=== PATIENT | female | born 1940 | race African-American/Black ===

== ENCOUNTER 2018-09-08 16:57 | Inpatient (IN) | payer MEDICAID ==
[~2018-09-08] VITALS: Ht 152.4 cm; Wt 83.2 kg
[2018-09-08] MEDS ORDERED: WARF6TAB6 PO (17:19)
[2018-09-08] MEDS ORDERED: GABA-531 PO (17:19)
[2018-09-08] MEDS ORDERED: OMEP20CA10 PO (17:19)
[2018-09-08] MEDS ORDERED: METO-539 PO (17:19)
[2018-09-08] MEDS ORDERED: MULT-1116 PO (17:19)
[2018-09-08] MEDS ORDERED: CALC-3 PO (17:19)
[2018-09-08] MEDS ORDERED: FURO20TA4 PO (17:19)
[2018-09-08] MEDS ORDERED: LEVO88TA7 PO (17:19)
[2018-09-08] MEDS ORDERED: ONDANSETRON HCL 4MG/2ML INJ IV STA (20:46)
[2018-09-08] MEDS ORDERED: MORPHINE SULFATE 4 MG/ML CPJ (NOT FOR IM USE) IV STA (20:46)
[2018-09-08 21:46] LABS: BASOPHILS % 0.3 % (0.0-2.0); EOSINOPHILS % 1.6 % (0.0-5.0); HEMOGLOBIN. 14.5 g/dL (12.0-16.0); LYMPHOCYTES % 7.1 % (20.0-50.0); MEAN CORPUSCULAR VOLUME 95.4 fL (81.0-99.0); MEAN PLATELET VOLUME 9.8 fl (7.4-10.4); MONOCYTES % 4.6 % (2.0-8.0); NEUTROPHILS % 86.4 % (40.0-76.0); PLATELET 102 x1000/uL (130-400); RED CELL DISTRIBUTION WIDTH 12.9 % (11.6-14.6)
[2018-09-08 21:52] LABS: CHLORIDE 109 mEq/L (98-107)
[2018-09-08 21:53] LABS: INR 1.8; PROTHROMBIN TIME 18.1 sec (9.1-11.1)
[2018-09-08] MEDS ORDERED: AZITHROMYCIN 500 MG in DEXT 5% WATER 250 ML IV SCH (23:00)
[2018-09-08] MEDS ORDERED: CEFTRIAXONE 1 G PREMIX 50 ML IV ONE (23:00)
[2018-09-09] MEDS ORDERED: GUAIFENESIN 200MG/10ML SUGAR FREE UDC PO PRN
[2018-09-09] MEDS ORDERED: MAGNESIUM/ALUMINUM HYDROXIDE/SIMETHICONE 30ML UDC PO PRN
[2018-09-09] MEDS ORDERED: NA PHOS,M-B/NA PHOS,DI-BA ENEMA 118ML PR PRN
[2018-09-09] MEDS ORDERED: IPRATROPIUM/ALBUTEROL 0.5-3(2.5)MG/3ML NEB INH PRN
[2018-09-09] MEDS ORDERED: ENOXAPARIN 40MG/0.4ML SYR SUBCUT SCH
[2018-09-09] MEDS ORDERED: CLONIDINE 0.1MG TABLET PO PRN
[2018-09-09] MEDS ORDERED: CEFTRIAXONE 1 G PREMIX 50 ML IV SCH
[2018-09-09] MEDS ORDERED: DOCUSATE SODIUM 100MG CAPSULE PO PRN
[2018-09-09] MEDS ORDERED: ONDANSETRON HCL 4MG/2ML INJ IV PRN
[2018-09-09] MEDS ORDERED: HYDROCODONE/ACETAMINOPHEN 5/325MG TABLET PO PRN
[2018-09-09] MEDS ORDERED: LORAZEPAM 2MG/ML CPJ IV PRN
[2018-09-09] MEDS ORDERED: DIPHENHYDRAMINE 50MG/ML VIAL IV PRN
[2018-09-09] MEDS ORDERED: ACETAMINOPHEN 325MG TABLET PO PRN
[2018-09-09 05:14] LABS: BASOPHILS % 0.2 % (0.0-2.0); EOSINOPHILS % 2.4 % (0.0-5.0); HEMATOCRIT. 39.6 % (36.0-48.0); HEMOGLOBIN. 13.5 g/dL (12.0-16.0); LYMPHOCYTES % 16.3 % (20.0-50.0); MEAN CORPUSCULAR HEMOGLOBIN 32.5 pg (28.0-32.0); MEAN CORPUSCULAR VOLUME 95.2 fL (81.0-99.0); MEAN PLATELET VOLUME 9.7 fl (7.4-10.4); MONOCYTES % 8.5 % (2.0-8.0); NEUTROPHILS % 72.6 % (40.0-76.0); PLATELET 100 x1000/uL (130-400); RED BLOOD CELL COUNT 4.16 mill/uL (4.2-5.4); RED CELL DISTRIBUTION WIDTH 12.7 % (11.6-14.6)
[2018-09-09 05:15] LABS: CHLORIDE 108 mEq/L (98-107)
[2018-09-09 05:23] LABS: LDL CHOLESTEROL 98 mg/dL (5-100)
[2018-09-09 05:25] LABS: HDL CHOLESTEROL 56 mg/dL (40-59); T4 FREE 1.04 ng/dL (0.76-1.46)
[2018-09-09 09:48] VITALS: BP 133/66
[2018-09-09 09:56] VITALS: BP 133/66
[2018-09-09] MEDS ORDERED: HYDROMORPHONE HCL/PF 2MG/ML CPJ IV PRN (10:38)
[2018-09-09] MEDS ORDERED: *CEFTRIAXONE XX SCH (11:00)
[2018-09-09 12:00] VITALS: BP 135/74
[2018-09-09] MEDS: ASPIRIN 81MG EC TABLET PO SCH (13:58)
[2018-09-09] MEDS ORDERED: ACET-2853 PO (14:25)
[2018-09-09] MEDS ORDERED: WARF10TA44 PO (14:25)
[2018-09-09] MEDS: SODIUM CHLORIDE 0.45% 1,000 ML IV SCH ×2 (15:55→23:00)
[2018-09-09 16:00] VITALS: BP 151/86
[2018-09-09] MEDS: MULTIVITAMINS,THER W-MINERALS TABLET PO SCH (16:00)
[2018-09-09] MEDS ORDERED: MEDICATION NOT ON FORMULARY EA (Metoprolol Tartrate 50 MG) PO SCH (17:00)
[2018-09-09] MEDS ORDERED: WARFARIN SODIUM 3MG TABLET PO SCH (18:00)
[2018-09-09 20:00] VITALS: BP 137/85
[2018-09-09] MEDS: METOPROLOL TARTRATE 50MG TABLET PO SCH (21:04)
[2018-09-09] MEDS: CEFTRIAXONE 1 G PREMIX 50 ML IV SCH (21:04)
[2018-09-09] MEDS: IPRATROPIUM/ALBUTEROL 0.5-3(2.5)MG/3ML NEB HHN SCH (21:48)
[2018-09-09] MEDS: AZITHROMYCIN 500 MG in DEXT 5% WATER 250 ML IV SCH (23:03)
[2018-09-10] VITALS: BP 138/78
[2018-09-10] MEDS: IPRATROPIUM/ALBUTEROL 0.5-3(2.5)MG/3ML NEB HHN SCH ×4 (02:10→21:17)
[2018-09-10 04:00] VITALS: BP 113/68
[2018-09-10] MEDS: LEVOTHYROXINE SODIUM 88MCG TABLET PO SCH (06:47)
[2018-09-10 07:59] VITALS: BP 146/77
[2018-09-10 08:31] LABS: INR 1.4
[2018-09-10] MEDS ORDERED: MEDICATION NOT ON FORMULARY EA (Multivitamin (Multi-Vitamin Daily) 1 TAB) PO SCH (09:00)
[2018-09-10] MEDS: MULTIVITAMINS,THER W-MINERALS TABLET PO SCH (09:47)
[2018-09-10] MEDS: ASPIRIN 81MG EC TABLET PO SCH (09:47)
[2018-09-10] MEDS: METOPROLOL TARTRATE 50MG TABLET PO SCH ×2 (09:47→21:14)
[2018-09-10 12:17] VITALS: BP 142/79
[2018-09-10 16:00] VITALS: BP 137/72
[2018-09-10] MEDS ORDERED: WARFARIN SODIUM 5MG TABLET PO NR (18:00)
[2018-09-10] MEDS ORDERED: WARFARIN SODIUM 4MG TABLET PO NR (18:00)
[2018-09-10 20:00] VITALS: BP 158/88
[2018-09-10] MEDS: CEFTRIAXONE 1 G PREMIX 50 ML IV SCH (21:14)
[2018-09-10] MEDS: AZITHROMYCIN 500 MG in DEXT 5% WATER 250 ML IV SCH (22:27)
[2018-09-11] VITALS: BP 145/79
[2018-09-11] MEDS: IPRATROPIUM/ALBUTEROL 0.5-3(2.5)MG/3ML NEB HHN SCH ×3 (02:48→13:45)
[2018-09-11 04:00] VITALS: BP 130/72
[2018-09-11] MEDS: LEVOTHYROXINE SODIUM 88MCG TABLET PO SCH (06:33)
[2018-09-11 08:00] VITALS: BP 147/72
[2018-09-11] MEDS: METOPROLOL TARTRATE 50MG TABLET PO SCH (09:28)
[2018-09-11] MEDS: MULTIVITAMINS,THER W-MINERALS TABLET PO SCH (09:28)
[2018-09-11] MEDS: ASPIRIN 81MG EC TABLET PO SCH (09:28)
[2018-09-11 10:04] LABS: INR 1.5; PROTHROMBIN TIME 15.1 sec (9.1-11.1)
[2018-09-11 12:00] VITALS: BP 160/88
[2018-09-11 14:47] VITALS: BP 131/78
[2018-09-11 16:00] VITALS: BP 131/78
[2018-09-11] MEDS ORDERED: WARFARIN SODIUM 3MG TABLET PO NR (18:00)
== END 2018-09-11 16:53 | disposition home or self-care (01) | DRG 241 ==
LOC: ER 19:14 → EDBEDREQTM 23:17 → EDBEDREQ 23:17 → ENRESERV 09-09 09:19 → 5WST 09-09 10:34
PROVIDERS: ADMIT Internal Medicine; ATTEND Internal Medicine
DX: K29.70 Gastritis, unspecified, without bleeding (principal); J69.0 Pneumonitis due to inhalation of food and vomit; J96.00 Acute respiratory failure, unspecified whether with hypoxia or hypercapnia; E86.0 Dehydration; I48.2 Chronic atrial fibrillation; E03.9 Hypothyroidism, unspecified; E78.00 Pure hypercholesterolemia, unspecified; E78.5 Hyperlipidemia, unspecified; I10 Essential (primary) hypertension; R10.11 Right upper quadrant pain; Z86.73 Personal history of transient ischemic attack (TIA), and cerebral infarction without residual deficits; Z79.01 Long term (current) use of anticoagulants; Z90.49 Acquired absence of other specified parts of digestive tract; Z90.710 Acquired absence of both cervix and uterus; Z79.899 Other long term (current) drug therapy
CPT/HCPCS: 36415; 71045; 76705; 80061; 83605; 83880; 84439; 84443; 84484; 93005; 94640; 96365; 96367; 96375; 99285; J0456; J0696; J2270; J2405; J7030; J7060; J7620

== ENCOUNTER 2019-05-07 17:21 | Emergency (ER) | payer MEDICAID ==
[~2019-05-07] VITALS: Ht 160 cm; Wt 80.0 kg
[~2019-05-07 17:21] MED LIST: ACET-2853 PO; CALC-3 PO; GABA-531 PO; LEVO88TA7 PO; METO-539 PO; MULT-1116 PO; OMEP20CA5 PO; WARF10TA44 PO; WARF6TAB6 PO
[2019-05-07] MEDS ORDERED: SODIUM CHLORIDE 0.9% 1,000 ML IV ONE (18:00)
[2019-05-07] MEDS ORDERED: LIDOCAINE 1%/EPI 1:100,000 10 ML VIAL IJ ONE (18:00)
[2019-05-07] MEDS ORDERED: BACITRACIN ZINC OINT UDPKT TOP ONE (18:00)
[2019-05-07] MEDS ORDERED: LIDOCAINE HCL/EPINEPHRINE 1%-EPI 1:100,000 20 ML VIAL MC NR (18:30)
[2019-05-07 18:56] LABS: BASOPHILS % 0.7 % (0.0-2.0); EOSINOPHILS % 4.6 % (0.0-5.0); HEMATOCRIT. 36.6 % (36.0-48.0); HEMOGLOBIN. 12.4 g/dL (12.0-16.0); LYMPHOCYTES % 26.3 % (20.0-50.0); MEAN CORPUSCULAR HEMOGLOBIN 32.6 pg (28.0-32.0); MEAN CORPUSCULAR VOLUME 95.9 fL (81.0-99.0); MONOCYTES % 14.6 % (2.0-8.0); NEUTROPHILS % 53.8 % (40.0-76.0); PLATELET 118 x1000/uL (130-400); RED BLOOD CELL COUNT 3.82 mill/uL (4.2-5.4); RED CELL DISTRIBUTION WIDTH 12.5 % (11.6-14.6)
[2019-05-07 19:01] LABS: CHLORIDE 111 mEq/L (98-107)
[2019-05-07 19:03] LABS: INR 1.1; PARTIAL THROMBOPLASTIN TIME 28.2 sec (23.4-31.0); PROTHROMBIN TIME 11.4 sec (9.6-11.0)
[2019-05-07] MEDS ORDERED: ACETAMINOPHEN 325MG TABLET PO ONE (19:15)
[2019-05-07 19:58] VITALS: BP 140/77
== END 2019-05-07 20:00 | disposition home or self-care (01) ==
LOC: ER 17:21
DX: I83.892 Varicose veins of left lower extremity with other complications (principal); R58 Hemorrhage, not elsewhere classified; Z90.49 Acquired absence of other specified parts of digestive tract; Z86.718 Personal history of other venous thrombosis and embolism; Z79.01 Long term (current) use of anticoagulants
CPT/HCPCS: 36415; 71045; 80053; 85025; 85610; 85730; 86850; 86870; 86900; 86901; 93005; 99284; J3490; J7030